=== PATIENT | female | born 1990 | race Caucasian/White ===

== ENCOUNTER 2017-06-01 15:46 | Outpatient (CLI) | END 2017-06-01 21:42 | disposition home or self-care (01) ==

== ENCOUNTER 2017-06-05 09:40 | Inpatient (IN) | END 2017-06-10 16:15 | disposition home or self-care (01) | DRG 775 ==

== ENCOUNTER 2017-07-18 22:18 | Emergency (ER) | END 2017-07-19 02:22 | disposition home or self-care (01) ==